=== PATIENT | female | born 1945 | race Caucasian/White ===

== ENCOUNTER 2020-02-17 22:23 | Inpatient (IN) | payer MEDICARE, OTHER ==
[~2020-02-17] VITALS: Ht 149.9 cm; Wt 32.7 kg
--- NOTE | 2020-02-17 22:37 | NUR ---
Patient is medically cleared by Dr. Rod
[2020-02-17] MEDS ORDERED: ENOX40DI SQ (22:39)
[2020-02-17] MEDS ORDERED: MELA3TAB11 PO (22:39)
[2020-02-17] MEDS ORDERED: OLAN5TAB3 PO (22:39)
[2020-02-17] MEDS ORDERED: ACET325C7 PO (22:39)
--- NOTE | 2020-02-17 22:50 | NUR ---
Pt. admitted to MHU (3rd floor Room 310), under care of Dr. Muller/Nita. Diagnosis: 5150 Hold Gravely Disabled/Psychosis. Belongs List completed
[2020-02-18] MEDS ORDERED: ACETAMINOPHEN 325 MG TABLET PO PRN
[2020-02-18] MEDS ORDERED: MAGNESIUM HYDROXIDE 30 ML LIQUID UDC PO PRN
[2020-02-18] MEDS ORDERED: TEMAZEPAM 7.5 MG CAPSULE PO PRN
[2020-02-18] MEDS ORDERED: BLOOD SUGAR DIAGNOSTIC 1 EACH STRIP VI ONE
--- NOTE | 2020-02-18 01:37 | NUR ---
Patient brought to MHU overflow 3rd floor from ER via gurney accompanied by Er nurse with Dx of psychosis under the care of .Patient admitted on a 5150 hold for gravely disabled .Patient Awake and alert .Calm but refuses skin assessment and Blood sugar check.No s/s of distress, no grimaces.Patient stated "I shouldn't be here.I should be in [place].Leave me alone".1:1 sitter at bedside for safety.IV site on left forearm, patent and intact.No s/s of infiltration.Will continue to monitor.
[2020-02-18 07:35] LABS: BILIRUBIN,TOTAL 0.6 mg/dL (0.2-1.0); CREATININE 0.8 mg/dL (0.6-1.3); POTASSIUM 3.8 mmol/L (3.5-5.1); TOTAL PROTEIN, SERUM 5.6 g/dL (6.4-8.2)
[2020-02-18] MEDS: LORAZEPAM 0.5 MG TABLET PO PRN (08:32)
--- NOTE | 2020-02-18 08:59 | NUR ---
gave report to Shankar MCNAMARA.
--- NOTE | 2020-02-18 09:00 | NUR ---
RECEIVED PATIENT VIA WHEELCHAIR aoX1-2, PATIENT APPEARS TO BE DISORGANIZED AND DISHEVELED,PATIENT HAS TANGLED HAIRS, APPEARS TO BE SMALL AND MALNOURISHED, UPON INSPECTION PATIENT NEEDED SHOWER, OFFERS SHOWER, PATIENT BOTH FEET DRY AND WITH TOENAILS HARDENED , THICK SKIN COVERING HER LEGS , AND FEELING OFF, OFFER SNACKS, AND ASSISTED WITH ADLS, WILL CONTINUE TO MONITOR
[2020-02-18] MEDS: NITROFURANTOIN/NITROFURAN MAC 100 MG CAPSULE PO SCH ×2 (12:40→20:09)
[2020-02-18 15:32] LABS: BASOPHILS # (AUTO) 0.1 K/uL (0.0-8.0); BASOPHILS % (AUTO) 0.7 % (0.0-2.0); EOSINOPHILS # (AUTO) 0.1 K/uL (0.0-0.7); EOSINOPHILS % (AUTO) 0.7 % (0.0-7.0); HEMOGLOBIN 12.7 g/dL (10.9-14.3); LYMPHOCYTES # (AUTO) 0.8 K/uL (20.0-40.0); LYMPHOCYTES % (AUTO) 8.4 % (20.5-51.5); MEAN CORPUSCULAR HEMOGLOBIN 31.3 uug (24.7-32.8); MEAN CORPUSCULAR HGB CONC 33 g/dL (32.3-35.6); MEAN CORPUSCULAR VOLUME 95.7 fL (75.5-95.3); MONOCYTES # (AUTO) 0.8 K/uL (2.0-10.0); MONOCYTES % (AUTO) 8.3 % (0.0-11.0); NEUTROPHILS # (AUTO) 7.8 K/uL (1.8-8.9); NEUTROPHILS % (AUTO) 81.9 % (38.5-71.5); PLATELET COUNT (AUTO) 191 K/uL (179-408); RED BLOOD CELL COUNT(AUTO) 4.07 MIL/uL (3.63-4.92); WHITE BLOOD COUNT (AUTO) 9.6 K/uL (3.8-11.8)
[2020-02-18 15:39] LABS: MAGNESIUM 2.2 mg/dL (1.8-2.4); PHOSPHOROUS 3.7 mg/dL (2.5-4.9)
[2020-02-18 15:49] LABS: THYROID STIMULATING HORMONE 3.257 mIU/mL (0.358-3.740)
[2020-02-18 16:00] VITALS: BP 127/40
--- NOTE | 2020-02-18 18:04 | NUR ---
patient been calm , redirectable, patient ate her dinner, patient remain confused, patient takes naps after her dinner, no distress at this time
[2020-02-18 20:00] VITALS: BP 104/54
[2020-02-18] MEDS: OLANZAPINE 2.5 MG TABLET PO SCH (20:09)
[2020-02-18] MEDS: MAG HYDROX/AL HYDROX/SIMETH 30 ML LIQUID UDC PO PRN (20:09)
[2020-02-19 07:30] VITALS: BP 98/57
[2020-02-19] MEDS: NITROFURANTOIN/NITROFURAN MAC 100 MG CAPSULE PO SCH ×2 (09:10→20:27)
[2020-02-19 16:16] VITALS: BP 98/48
[2020-02-19] MEDS: OLANZAPINE 2.5 MG TABLET PO SCH (20:27)
[2020-02-19 20:45] VITALS: BP 126/63
[2020-02-20] MEDS: NITROFURANTOIN/NITROFURAN MAC 100 MG CAPSULE PO SCH ×2 (08:52→20:13)
[2020-02-20 09:10] VITALS: BP 114/66
--- NOTE | 2020-02-20 11:10 | NUR ---
SW Initial Discharge Plan: Patient currently resides at [address] [place] [id number]; ([phone]). This press writer contacted patient's Barron Trustee ([phone]) who is involved in patient's care. This press writer left Barron a voicemail to call back. Patient has a housing case manager Sophia from [facility] ([phone]) and stated patient will require a SNF. This press writer will work with the MD, Treatment team, and family to coordinate a proper discharge.
--- NOTE | 2020-02-20 11:10 | NUR ---
SW King Maker Contact: This communications writer received a phone call from [facility] ([phone]) from pt's supportive employment case manager Sophia who stated that pt can not return back home and that an APS case is open. Sophia stated pt's Trustee Barron ([phone]) is involved in pt's care.
--- NOTE | 2020-02-20 11:10 | NUR ---
SW Family Contact: This typewriter mechanic contacted Barron who is pt's Trustee ([phone]) and left a voicemail to discuss pt's discharge plan and treatment plan.
--- NOTE | 2020-02-20 11:21 | NUR ---
Firearms Report: Neuropsychology Director completed and submitted a [employer] firearms report for 5150 grave disability certification. A copy of report has been placed in patient chart.
--- NOTE | 2020-02-20 12:00 | NUR ---
HENRI Individual Therapy: This gag writer met with pt to provide brief therapy. Pt appeared confused and disorganized. Pt was alert and oriented to self only. Pt was unable to stated where she is at and why she is at the hospital. Pt appeared with delusional thoughts and appeared paranoid. Pt constantly stated to this gag writer "where is the clock? I am looking for the clock?" This gag writer was unable to provide brief counseling at this moment.
--- NOTE | 2020-02-20 13:48 | NUR ---
APS Contact: This contract writer contacted pt's APS worker Daisy ([phone]) who stated it is not safe for pt to return back home. Daisy stated pt has had multiple APS Reports. Per Daisy, she shared pt was living with her sister who is now placed at a halfway because she fell at home and her mental status declined. Pt Daisy, she stated pt will need a nursing facility.
[2020-02-20] MEDS: OLANZAPINE 2.5 MG TABLET PO SCH ×2 (16:49→20:13)
[2020-02-20 17:33] VITALS: BP 118/52
[2020-02-20 20:00] VITALS: BP 116/56
--- NOTE | 2020-02-21 07:24 | NUR ---
received patient AOx1-2, patient denies pain, redirectable, patient compliant with medication needed some encouragement
[2020-02-21 07:38] VITALS: BP 125/70
[2020-02-21] MEDS: OLANZAPINE 2.5 MG TABLET PO SCH ×2 (08:20→20:16)
[2020-02-21] MEDS: NITROFURANTOIN/NITROFURAN MAC 100 MG CAPSULE PO SCH ×2 (08:20→20:16)
--- NOTE | 2020-02-21 12:16 | NUR ---
SW Discharge Plan: This engineering technical writer contacted admin Na from [facility] ([phone]) and sent pt's clinicals for review. Per Na, she accepted pt.
[2020-02-21] MEDS: ENSURE ENLIVE (VAN) 240 ML LIQUID PO SCH ×2 (13:00→16:48)
[2020-02-21] MEDS: DIVALPROEX SPRINKLE 125 MG CAP.SPRINK PO SCH ×2 (14:35→16:44)
[2020-02-21 15:57] VITALS: BP 149/65
[2020-02-21] MEDS: VITAMINS A AND D OINT TP SCH (16:50)
[2020-02-21 19:39] VITALS: BP 115/62
--- NOTE | 2020-02-22 06:06 | NUR ---
GPS - Noted pt behavior WNL and or baseline. No aggression noted, but refused routine medication early when offered. later was compliant and medication was administered. No new s/s of infection, tolerating atb therapy without side effect noted. Will continue head count.
[2020-02-22 07:30] VITALS: BP 130/62
[2020-02-22] MEDS: OLANZAPINE 2.5 MG TABLET PO SCH ×2 (08:09→20:11)
[2020-02-22] MEDS: NITROFURANTOIN/NITROFURAN MAC 100 MG CAPSULE PO SCH ×2 (08:09→20:11)
[2020-02-22] MEDS: DIVALPROEX SPRINKLE 125 MG CAP.SPRINK PO SCH ×3 (08:09→16:43)
[2020-02-22] MEDS: ENSURE ENLIVE (VAN) 240 ML LIQUID PO SCH ×3 (08:11→16:44)
[2020-02-22] MEDS: VITAMINS A AND D OINT TP SCH ×2 (08:11→16:45)
[2020-02-22 16:00] VITALS: BP 131/72
[2020-02-22 20:18] VITALS: BP 128/77
[2020-02-22] MEDS: OLANZAPINE 5 MG TABLET PO SCH (21:00)
[2020-02-22] MEDS ORDERED: DIVALPROEX SPRINKLE 125 MG CAP.SPRINK PO SCH (21:00)
--- NOTE | 2020-02-22 23:50 | NUR ---
GPS/NSG Pharmacy Zyprexa 2.5 administered as ordered. Consent faxed to on-call Pharmacy. Waiting for pharmacy to verify.
--- NOTE | 2020-02-23 06:51 | NUR ---
PT SLEPT 8.15 HOURS. PT IN NO ACUTE DISTRESS. PRESCRIBED MEDICATION GIVEN AND PT TOLERATED IT WELL. PT PLEASANT WHEN APPROACHED. COOPERATIVE WITH CARE.SAFETY AND COMFORT PROVIDED. WILL ENDORSE TO INCOMING NURSE FOR CONTINUITY OF CARE.
--- NOTE | 2020-02-23 07:00 | NUR ---
RECEIVED PATIENT AOX1, PATIENT SOMEWHAT ANXIOUS, WANTING TO GO HOME, PATIENT APPEARS FEARFUL, ASSISTED WITH ADL, NO DISTRESS AT THIS TIME
[2020-02-23 07:56] VITALS: BP 132/61
[2020-02-23] MEDS: NITROFURANTOIN/NITROFURAN MAC 100 MG CAPSULE PO SCH ×2 (08:48→20:41)
[2020-02-23] MEDS: OLANZAPINE 2.5 MG TABLET PO SCH (08:48)
[2020-02-23] MEDS: DIVALPROEX SPRINKLE 125 MG CAP.SPRINK PO SCH ×4 (08:48→20:42)
[2020-02-23] MEDS: VITAMINS A AND D OINT TP SCH ×2 (09:00→17:00)
[2020-02-23] MEDS: ENSURE ENLIVE (VAN) 240 ML LIQUID PO SCH ×3 (09:00→17:00)
--- NOTE | 2020-02-23 10:00 | NUR ---
PATIENT WAS ABLE TO ATTEND GROUP THERAPY AND COMPLY WITH MEDICATION, BUT STILL HESISTANT AND NEEDED SOME PROMPTING
--- NOTE | 2020-02-23 11:27 | NUR ---
PC Hearing: Patient had her probable cause hearing today and was upheld for grave disability.
[2020-02-23 14:58] VITALS: BP 121/59
--- NOTE | 2020-02-23 18:13 | NUR ---
PATIENT STAYED IN HER ROOM MOST OF THE TIME, GUARDED AND ISOLATIVE, NO DISTRESS AT THIS TIME
[2020-02-23 20:00] VITALS: BP 125/61
[2020-02-23] MEDS: OLANZAPINE 5 MG TABLET PO SCH (20:42)
[2020-02-24 07:30] VITALS: BP 139/58
[2020-02-24] MEDS: DIVALPROEX SPRINKLE 125 MG CAP.SPRINK PO SCH ×4 (09:06→20:20)
[2020-02-24] MEDS: OLANZAPINE 2.5 MG TABLET PO SCH (09:06)
[2020-02-24] MEDS: VITAMINS A AND D OINT TP SCH ×2 (09:06→17:16)
[2020-02-24] MEDS: ENSURE ENLIVE (VAN) 240 ML LIQUID PO SCH ×3 (09:07→17:17)
[2020-02-24] MEDS: MAG HYDROX/AL HYDROX/SIMETH 30 ML LIQUID UDC PO PRN (09:12)
--- NOTE | 2020-02-24 14:40 | NUR ---
HENRI Individual Therapy: This service writer met with patient to discuss discharge plan and explained that pt cannot return back home because APS is involved. This service writer explained it is not safe for pt to return back home. Pt appeared confused and disorganized. She was stating "what? my shoes? what shoes?".
--- NOTE | 2020-02-24 14:56 | NUR ---
SW Family Contact: This service writer received a phone call from pt's trustee Barron ([phone]) and discussed discharge plan. This service writer informed pt is accepted at [facility] he was aware and agreeable. He mentioned he would want to send pt's items to the nursing facility upon dc.
[2020-02-24 16:00] VITALS: BP 101/41
[2020-02-24 20:08] VITALS: BP 134/76
[2020-02-24] MEDS: MEMANTINE HCL 5 MG TABLET PO SCH (20:20)
[2020-02-24] MEDS: OLANZAPINE 5 MG TABLET PO SCH (20:20)
[2020-02-25 07:30] VITALS: BP 99/58
[2020-02-25 08:23] LABS: BASOPHILS % (AUTO) 0.8 % (0.0-2.0); EOSINOPHILS # (AUTO) 0.1 K/uL (0.0-0.7); EOSINOPHILS % (AUTO) 2.7 % (0.0-7.0); HEMATOCRIT 43.3 % (31.2-41.9); HEMOGLOBIN 14.3 g/dL (10.9-14.3); LYMPHOCYTES # (AUTO) 1.2 K/uL (20.0-40.0); MEAN CORPUSCULAR HEMOGLOBIN 31.3 uug (24.7-32.8); MEAN CORPUSCULAR HGB CONC 33 g/dL (32.3-35.6); MEAN CORPUSCULAR VOLUME 94.8 fL (75.5-95.3); MONOCYTES # (AUTO) 0.4 K/uL (2.0-10.0); MONOCYTES % (AUTO) 9.2 % (0.0-11.0); NEUTROPHILS # (AUTO) 2.9 K/uL (1.8-8.9); NEUTROPHILS % (AUTO) 61.3 % (38.5-71.5); PLATELET COUNT (AUTO) 200 K/uL (179-408); RED BLOOD CELL COUNT(AUTO) 4.57 MIL/uL (3.63-4.92); WHITE BLOOD COUNT (AUTO) 4.7 K/uL (3.8-11.8)
[2020-02-25 08:36] LABS: BILIRUBIN,TOTAL 0.5 mg/dL (0.2-1.0); CREATININE 0.8 mg/dL (0.6-1.3); POTASSIUM 4.1 mmol/L (3.5-5.1); TOTAL PROTEIN, SERUM 7.3 g/dL (6.4-8.2)
[2020-02-25] MEDS: ENSURE ENLIVE (VAN) 240 ML LIQUID PO SCH ×3 (09:00→17:11)
[2020-02-25] MEDS: DIVALPROEX SPRINKLE 125 MG CAP.SPRINK PO SCH ×4 (10:47→20:02)
[2020-02-25] MEDS: MEMANTINE HCL 5 MG TABLET PO SCH ×2 (10:47→20:02)
[2020-02-25] MEDS: OLANZAPINE 2.5 MG TABLET PO SCH (10:47)
[2020-02-25] MEDS: VITAMINS A AND D OINT TP SCH ×2 (10:48→17:11)
[2020-02-25 12:52] LABS: EOSINOPHILS % (MANUAL) 2 % (0-8); LYMPHOCYTES % (MANUAL) 26 % (20-40); MONOCYTES % (MANUAL) 12 % (2-10); NEUTROPHILS % (MANUAL) 60 % (42-75)
[2020-02-25 16:00] VITALS: BP 93/45
[2020-02-25 20:00] VITALS: BP 100/52
[2020-02-25] MEDS: OLANZAPINE 5 MG TABLET PO SCH (20:02)
[2020-02-25 20:15] VITALS: BP 120/62
--- NOTE | 2020-02-26 06:05 | NUR ---
GPS: PT SLEPT 6.30 HOURS THROUGH THE NIGHT. PT IN NO ACUTE DISTRESS. PT REMAIN PLEASANT WHEN APPROACHED. COOPERATIVE WITH CARE AND MEDS. SAFETY AND COMFORT PROVIDED.
[2020-02-26 07:30] VITALS: BP 91/54
[2020-02-26] MEDS: ENSURE ENLIVE (VAN) 240 ML LIQUID PO SCH ×3 (08:31→17:09)
[2020-02-26] MEDS: OLANZAPINE 2.5 MG TABLET PO SCH (08:31)
[2020-02-26] MEDS: DIVALPROEX SPRINKLE 125 MG CAP.SPRINK PO SCH ×4 (08:31→20:10)
[2020-02-26] MEDS: MEMANTINE HCL 5 MG TABLET PO SCH ×2 (08:31→20:08)
[2020-02-26] MEDS: VITAMINS A AND D OINT TP SCH ×2 (08:33→17:08)
[2020-02-26 16:50] VITALS: BP 132/75
--- NOTE | 2020-02-26 18:52 | NUR ---
PATIENT COMPLIANT WITH MEDICATIONS AND CARE WITH REINFORCEMENT. NO ACUTE DISTRESS. WILL CONTINUE CLOSE MONITORING
[2020-02-26] MEDS: OLANZAPINE 5 MG TABLET PO SCH (20:09)
[2020-02-26 20:12] VITALS: BP 118/66
[2020-02-26] MEDS: LORAZEPAM 0.5 MG TABLET PO PRN (23:47)
--- NOTE | 2020-02-27 02:56 | NUR ---
RECEIVED PATIENT IN HER ROOM. DISHEVELED WITH HER HAIR ALL OVER HER FACE AND REFUSAL TO LOOK UP OR HAVE IT TIDIED UP FOR HER. ISOLATIVE,WITHDRAWN AND APPEARS FEARFUL. DENIES AH/VH BUT COULD BR SEEN MUMBLING TO HERSELF AND PACKING AND UNPACKING OH HER BED.TOOK HER MEDICATIONS WITH SEVERAL PROMPTING AND REENFORCEMENT. GAVE HER TAB RESTORIL AT 01:00 WITH GOOD EFFECT. VISUAL CHECKS MADE ON HER FOR SAFETY. WILL CONTINUE TO MONITOR.
--- NOTE | 2020-02-27 06:31 | NUR ---
SLEPT FOR 4 HOURS. STILL SLEEPING AT THIS TIME.
[2020-02-27 07:30] VITALS: BP 115/49
[2020-02-27] MEDS: ENSURE ENLIVE (VAN) 240 ML LIQUID PO SCH ×3 (08:51→17:00)
[2020-02-27] MEDS: DIVALPROEX SPRINKLE 125 MG CAP.SPRINK PO SCH ×4 (08:53→20:25)
[2020-02-27] MEDS: MEMANTINE HCL 5 MG TABLET PO SCH ×2 (08:53→20:31)
[2020-02-27] MEDS: OLANZAPINE 2.5 MG TABLET PO SCH (08:54)
[2020-02-27] MEDS: VITAMINS A AND D OINT TP SCH ×2 (09:03→16:43)
[2020-02-27 11:50] LABS: BASOPHILS # (AUTO) 0.1 K/uL (0.0-8.0); BASOPHILS % (AUTO) 0.8 % (0.0-2.0); EOSINOPHILS # (AUTO) 0.1 K/uL (0.0-0.7); HEMATOCRIT 35.2 % (31.2-41.9); HEMOGLOBIN 11.7 g/dL (10.9-14.3); LYMPHOCYTES # (AUTO) 0.9 K/uL (20.0-40.0); LYMPHOCYTES % (AUTO) 13.3 % (20.5-51.5); MEAN CORPUSCULAR HEMOGLOBIN 31.6 uug (24.7-32.8); MEAN CORPUSCULAR HGB CONC 33 g/dL (32.3-35.6); MEAN CORPUSCULAR VOLUME 94.9 fL (75.5-95.3); MONOCYTES # (AUTO) 0.8 K/uL (2.0-10.0); MONOCYTES % (AUTO) 11.1 % (0.0-11.0); NEUTROPHILS % (AUTO) 72.8 % (38.5-71.5); PLATELET COUNT (AUTO) 178 K/uL (179-408); RED BLOOD CELL COUNT(AUTO) 3.71 MIL/uL (3.63-4.92); WHITE BLOOD COUNT (AUTO) 6.9 K/uL (3.8-11.8)
[2020-02-27 11:55] LABS: BILIRUBIN,TOTAL 0.2 mg/dL (0.2-1.0); CREATININE 0.7 mg/dL (0.6-1.3); MAGNESIUM 2.1 mg/dL (1.8-2.4); POTASSIUM 3.9 mmol/L (3.5-5.1); TOTAL PROTEIN, SERUM 6.2 g/dL (6.4-8.2)
--- NOTE | 2020-02-27 12:36 | NUR ---
patient is guarded, withdrawn, and appears fearful of staff. staff attempts to help patient ambulate to the bathroom but patient is afraid and believes staff will hurt her. patient is able to follow command but after mutliple attempts at redirection. patient appears disheveled and unkempt. she appears that she is responding to internal stimuli, whispering to herself and speaking to unknown others. patient is adherent with medication, no adverse reaction noted. educated to communicate needs to staff.
[2020-02-27 15:36] VITALS: BP 106/49
[2020-02-27 20:29] VITALS: BP 112/59
[2020-02-27] MEDS: OLANZAPINE 5 MG TABLET PO SCH (20:32)
--- NOTE | 2020-02-28 02:31 | NUR ---
RECEIVED PATIENT WALKING UP AND DOWN THE HALLWAY. COULD BE SEEN TRYING TO HIDE BEHIND HER DOOR IN HER ROOM. APPEARS DISHEVELED, ISOLATIVE,WITHDRAWN AND FEARFUL OF STAFF WITH MINIMAL EYE CONTACT. DENIES AH/VH BUT COULD BR SEEN MUMBLING TO HERSELF.SHE IS HOWEVER MEDICATIONS COMPLIANT AFTER A FEW PROMPTING. VISUAL CHECKS MADE ON HER FOR SAFETY. WILL CONTINUE TO MONITOR.
--- NOTE | 2020-02-28 06:35 | NUR ---
SLEPT FOR 6:30 HOURS. URINE FOR LAB COLLECTED AND SENT.
[2020-02-28 06:37] LABS: *BILIRUBIN,URIN NEGATIVE (NEGATIVE); *CLARITY,URINE SLIGHTLY CLOUDY (CLEAR); *COLOR,URINE YELLOW (YELLOW); *KETONES,URINE NEGATIVE (NEGATIVE); *UROBILINOGEN,URINE 0.2 E.U./dl (NORMAL); LEUKOCYTE ESTERASE ,URINE NEGATIVE (NEGATIVE); NITRITE, URINE NEGATIVE (NEGATIVE); UGLUCOSE NEGATIVE (NEGATIVE)
[2020-02-28 07:03] LABS: *BLOOD, URINE TRACE (NEGATIVE)
[2020-02-28 07:30] VITALS: BP 130/104
[2020-02-28 08:25] LABS: BASOPHILS % (AUTO) 0.9 % (0.0-2.0); EOSINOPHILS # (AUTO) 0.1 K/uL (0.0-0.7); EOSINOPHILS % (AUTO) 2.7 % (0.0-7.0); HEMATOCRIT 35.5 % (31.2-41.9); HEMOGLOBIN 11.8 g/dL (10.9-14.3); LYMPHOCYTES # (AUTO) 0.9 K/uL (20.0-40.0); LYMPHOCYTES % (AUTO) 17.2 % (20.5-51.5); MEAN CORPUSCULAR HEMOGLOBIN 31.4 uug (24.7-32.8); MEAN CORPUSCULAR HGB CONC 33 g/dL (32.3-35.6); MEAN CORPUSCULAR VOLUME 94.7 fL (75.5-95.3); MONOCYTES # (AUTO) 0.6 K/uL (2.0-10.0); MONOCYTES % (AUTO) 11.7 % (0.0-11.0); NEUTROPHILS # (AUTO) 3.5 K/uL (1.8-8.9); NEUTROPHILS % (AUTO) 67.5 % (38.5-71.5); PLATELET COUNT (AUTO) 176 K/uL (179-408); RED BLOOD CELL COUNT(AUTO) 3.75 MIL/uL (3.63-4.92); WHITE BLOOD COUNT (AUTO) 5.2 K/uL (3.8-11.8)
[2020-02-28] MEDS: MEMANTINE HCL 5 MG TABLET PO SCH ×2 (08:34→21:02)
[2020-02-28] MEDS: DIVALPROEX SPRINKLE 125 MG CAP.SPRINK PO SCH ×4 (08:34→21:03)
[2020-02-28] MEDS: OLANZAPINE 2.5 MG TABLET PO SCH (08:34)
[2020-02-28 08:36] LABS: BILIRUBIN,TOTAL 0.3 mg/dL (0.2-1.0); CREATININE 0.8 mg/dL (0.6-1.3); POTASSIUM 4.1 mmol/L (3.5-5.1); TOTAL PROTEIN, SERUM 6.1 g/dL (6.4-8.2)
[2020-02-28] MEDS: ENSURE ENLIVE (VAN) 240 ML LIQUID PO SCH ×3 (09:00→16:38)
[2020-02-28] MEDS: VITAMINS A AND D OINT TP SCH ×2 (09:28→16:39)
[2020-02-28 10:05] LABS: BACTERIA,URINE FEW /HPF (NONE SEEN); SQUAMOUS EPITHELIAL CELL,UR FEW /HPF (NONE SEEN); WBC,URINE 0-3 /HPF (0-3)
[2020-02-28 16:26] VITALS: BP 94/61
--- NOTE | 2020-02-28 18:19 | NUR ---
PATIENT IS SLEEPING IN HER BED,BED ALARM SET COMPLIANT WITH MEDICATIONS AND CARE WITH REINFORCEMENT. NO ACUTE DISTRESS. WILL CONTINUE CLOSE MONITORING.
[2020-02-28 19:54] VITALS: BP 118/55
[2020-02-28] MEDS: OLANZAPINE 5 MG TABLET PO SCH (21:03)
[2020-02-29 07:30] VITALS: BP 102/39
[2020-02-29] MEDS: DIVALPROEX SPRINKLE 125 MG CAP.SPRINK PO SCH ×4 (09:09→21:02)
[2020-02-29] MEDS: VITAMINS A AND D OINT TP SCH ×2 (09:09→16:44)
[2020-02-29] MEDS: MEMANTINE HCL 5 MG TABLET PO SCH ×2 (09:09→21:12)
[2020-02-29] MEDS: ENSURE ENLIVE (VAN) 240 ML LIQUID PO SCH ×3 (10:00→16:45)
--- NOTE | 2020-02-29 10:05 | NUR ---
HENRI spoke to Charge Nurse Shankar and asked for a COVID test to be ordered for the pt for discharge purposes.
--- NOTE | 2020-02-29 10:11 | NUR ---
Trustee Contact: HENRI called the pt's trustee Barron ([phone]) and left a voicemail that informed him that the pt is going to be discharged to [facility] the following day.
--- NOTE | 2020-02-29 10:13 | NUR ---
APS Contact: SW contacted pt's APS worker Daisy ([phone]) and left a voicemail stating that the pt is going to be discharged to [facility] the following day. HENRI stated that if she has any questions to give the SW a call.
[2020-02-29 16:00] VITALS: BP 111/51
[2020-02-29 19:56] VITALS: BP 101/45
[2020-02-29] MEDS: OLANZAPINE 5 MG TABLET PO SCH (21:02)
[2020-02-29 21:11] VITALS: BP 120/54
[2020-03-01 07:30] VITALS: BP 110/59
--- NOTE | 2020-03-01 08:27 | NUR ---
Discharge Note: Pt was discharged to [facility]Note 3[facility] ([facility]) [place] at [address] [place] [address]; ([phone]). Pt was transported via [facility] at 12PM. Pts trustee Barron ([phone]) was informed of the discharge. Upon discharge, pt appeared to be in a congruent mood and presented with an agitated affect. Pt denied both suicidal and homicidal ideation as well as auditory and visual hallucinations. Pt appeared to be alert and oriented x4 (time, place, self and situation). Pt appeared to be well groomed and appropriately dressed. Pt appears to be ambulatory with an unsteady gait. Pt will continue to be under the care of psychiatrist, Dr. Camille Muller, located at [address], [place] [address]; and air cargo specialist supervisor, Dr. Tanvir Moore, located at [address] [place] [address]; . The multidisciplinary exit care form was done, printed, signed, and given to the patient.
[2020-03-01 08:55] LABS: BASOPHILS % (AUTO) 0.9 % (0.0-2.0); EOSINOPHILS # (AUTO) 0.1 K/uL (0.0-0.7); EOSINOPHILS % (AUTO) 2.9 % (0.0-7.0); HEMATOCRIT 38.5 % (31.2-41.9); HEMOGLOBIN 12.6 g/dL (10.9-14.3); LYMPHOCYTES # (AUTO) 1.1 K/uL (20.0-40.0); LYMPHOCYTES % (AUTO) 21.7 % (20.5-51.5); MEAN CORPUSCULAR HEMOGLOBIN 31.2 uug (24.7-32.8); MEAN CORPUSCULAR HGB CONC 33 g/dL (32.3-35.6); MEAN CORPUSCULAR VOLUME 95.1 fL (75.5-95.3); MONOCYTES # (AUTO) 0.5 K/uL (2.0-10.0); MONOCYTES % (AUTO) 11.1 % (0.0-11.0); NEUTROPHILS # (AUTO) 3.1 K/uL (1.8-8.9); NEUTROPHILS % (AUTO) 63.4 % (38.5-71.5); PLATELET COUNT (AUTO) 173 K/uL (179-408); RED BLOOD CELL COUNT(AUTO) 4.05 MIL/uL (3.63-4.92); WHITE BLOOD COUNT (AUTO) 4.9 K/uL (3.8-11.8)
[2020-03-01] MEDS: ENSURE ENLIVE (VAN) 240 ML LIQUID PO SCH (08:56)
[2020-03-01] MEDS: VITAMINS A AND D OINT TP SCH (08:59)
[2020-03-01] MEDS: DIVALPROEX SPRINKLE 125 MG CAP.SPRINK PO SCH (08:59)
[2020-03-01] MEDS ORDERED: CYANOCOBALAMIN 1000 MCG/ML VIAL IM SCH (09:00)
[2020-03-01 09:14] LABS: CREATININE 0.8 mg/dL (0.6-1.3); POTASSIUM 3.8 mmol/L (3.5-5.1)
[2020-03-01 09:15] LABS: BILIRUBIN,TOTAL 0.4 mg/dL (0.2-1.0); MAGNESIUM 2.3 mg/dL (1.8-2.4); TOTAL PROTEIN, SERUM 6.7 g/dL (6.4-8.2)
[2020-03-01] MEDS: MEMANTINE HCL 5 MG TABLET PO SCH (10:00)
--- NOTE | 2020-03-01 11:32 | NUR ---
Individual Intervention: Pt refused to leave the facility when the ambulance came and the SW and the pts nurse attempted to speak to the pt. SW attempted to tell the pt that the discharge order was placed and that the nursing facility that she is going to is much better than the hospital. Pt kept refusing so the SW had the nurse call Security. Pt agreed to leave once Security spoke to the pt.
--- NOTE | 2020-03-01 11:50 | NUR ---
Patient discharged to [facility] in stable condition without adverse event. Patient is being picked up and transported by nonemergency ambulance. Patient's belongings returned, wearing glasses upon discharge. Patient offered flu shot but she refused the vaccination, provided with education about importance of vaccination but continued to refused. Patient was provided with education about discharge instructions, follow up care, and medications, able to verbalize understanding. Patient denies SI/HI, denies AH/VH.
== END 2020-03-01 11:35 | DRG 885 ==
LOC: ER 22:23 → GPSOV3 23:05 → GPS 02-18 08:48
PROVIDERS: ADMIT Psychiatry & Neurology Psychosomatic Medicine; ATTEND Nurse Practitioner Acute Care
DX: F29 Unspecified psychosis not due to a substance or known physiological condition (principal); F01.50 Vascular dementia, unspecified severity, without behavioral disturbance, psychotic disturbance, mood disturbance, and anxiety; F79 Unspecified intellectual disabilities; E44.0 Moderate protein-calorie malnutrition; Z68.1 Body mass index [BMI] 19.9 or less, adult; N39.0 Urinary tract infection, site not specified; L85.3 Xerosis cutis; E88.09 Other disorders of plasma-protein metabolism, not elsewhere classified; L60.3 Nail dystrophy; Z73.6 Limitation of activities due to disability; F25.9 Schizoaffective disorder, unspecified
CPT/HCPCS: 36415; 70030-TC; 80164; 83735; 84100; 84443; 85025; A4663; J3420